=== PATIENT | male | born 1955 ===

== ENCOUNTER → 2017-10-30 | Outpatient (REF) ==
[~2017-10-30] MED LIST: CEP500 PO; DILSR120 PO; DOXY-179 PO; LOR75 PO; OLME1TAB51 PO; SCOT TD
== END ==
LOC: AUD 13:20
PROVIDERS: ATTEND Internal Medicine
DX: Z01.10 Encounter for examination of ears and hearing without abnormal findings (principal)
CPT/HCPCS: 92552

== ENCOUNTER → 2018-10-22 | Outpatient (REF) | LOC: AUD 13:30 | PROVIDERS: ATTEND Internal Medicine | DX: Z01.12 Encounter for hearing conservation and treatment (principal) | CPT/HCPCS: 92552 ==